=== PATIENT | female | born 1975 | race American Indian/Alaskan Native ===

== ENCOUNTER 2019-04-22 10:07 | Emergency (ER) | payer MEDICARE ==
--- NOTE | 2019-04-22 11:18 | Emergency Department Report ---
Blank Doc - Documentation Documentation: 44-year-old female that presents with URI symptoms and was sent by PCP. This initial assessment/diagnostic orders/clinical plan/treatment(s) is/are subject to change based on patient's health status, clinical progression and re- assessment by fellow clinical providers in the ED. Further treatment and workup at subsequent clinical providers discretion. Patient/guardians urged not to elope from the ED as their condition may be serious if not clinically assessed and managed. Initial orders include: 1- Patient sent to [facility] for further evaluation and treatment 2- CXR
--- NOTE | 2019-04-22 11:43 | XRay Report ---
CHEST 2 VIEWS INDICATION / CLINICAL INFORMATION: cough. COMPARISON: None available. FINDINGS: SUPPORT DEVICES: None. HEART / MEDIASTINUM: No significant abnormality. LUNGS / PLEURA: No significant pulmonary or pleural abnormality. .No pneumothorax. ADDITIONAL FINDINGS: No significant additional findings. IMPRESSION: 1. No acute findings. Signer Name: Marlon Slater MD Signed: 04/22/2019 11:39 AM Workstation Name: [id number]
--- NOTE | 2019-04-22 12:24 | Emergency Department Report ---
- General Chief Complaint: Upper Respiratory Infection Stated Complaint: CHEST PAIN/BACK/BODYPAIN Time Seen by Provider: 04/22/19 11:16 Source: patient Mode of arrival: Ambulatory Limitations: No Limitations - History of Present Illness Initial Comments: 44-year-old -[place] female presents to the emergency room complaining of body aches chills fever cough and chest congestion. Patient has a history of rheumatoid arthritis and on methotrexate. Patient reports that she did contact her primary care doctor and they referred her to the emergency room. Patient reports that her MAXIMUM TEMPERATURE is 102 last night. Patient reports she has been taking [id number] Tylenol, Benadryl, TheraFlu and ibuprofen without much relief. MD Complaint: fever, cough, sore throat, rhinorrhea, nasal congestion Onset/Timin Severity scale (0 -10): 4 Quality: aching Consistency: constant Improves With: nothing Worsens With: nothing Context: recent chemotherapy Associated Symptoms: fever, chills, myalgias, headache, nasal congestion, sore throat, cough, chest pain Treatments Prior to Arrival: Acetaminophen - Related Data Allergies Allergy/AdvReac Type Severity Reaction Status Date / Time No Known Allergies Allergy Unverified 04/22/19 11:16 ED Review of Systems ROS: Stated complaint: CHEST PAIN/BACK/BODYPAIN Other details as noted in HPI Comment: All other systems reviewed and negative ED Past Medical Hx - Past Medical History Previous Medical History?: Yes Hx Arthritis: Yes (RA on Methotrexate) - Surgical History Past Surgical History?: Yes Additional Surgical History: Hysterectomy. Breast reduction - Social History Smoking Status: Never Smoker Substance Use Type: None ED Physical Exam - General Limitations: No Limitations General appearance: alert, in no apparent distress - Head Head exam: Present: atraumatic, normocephalic - Eye Eye exam: Present: normal appearance - ENT ENT exam: Present: mucous membranes moist - Neck Neck exam: Present: normal inspection - Respiratory Respiratory exam: Present: normal lung sounds bilaterally. Absent: respiratory distress - Cardiovascular Cardiovascular Exam: Present: regular rate, normal rhythm. Absent: systolic murmur, diastolic murmur, rubs, gallop - GI/Abdominal GI/Abdominal exam: Present: soft, normal bowel sounds - Extremities Exam Extremities exam: Present: normal inspection - Back Exam Back exam: Present: normal inspection - Neurological Exam Neurological exam: Present: alert, oriented X3 - Psychiatric Psychiatric exam: Present: normal affect, normal mood - Skin Skin exam: Present: warm, dry, intact, normal color. Absent: rash ED Course Vital Signs 04/22/19 11:15 Temperature 98.3 F Pulse Rate 99 H Respiratory 18 Rate Blood Pressure 144/95 O2 Sat by Pulse 100 Oximetry ED Medical Decision Making - Radiology Data Radiology results: report reviewed Patient: ALICE MARTÍNEZ MR#: [id number] : 1975 Acct:[id number] Age/Sex: 44 / F ADM Date: 04/22/19 Loc: ED Attending Dr: Ordering Physician: JUSTIN MENENDEZ NP Date of Service: 04/22/19 Procedure(s): XR chest routine 2V Accession Number(s): [id number] cc: JUSTIN MENENDEZ NP Fluoro Time In Minutes: CHEST 2 VIEWS INDICATION / CLINICAL INFORMATION: cough. COMPARISON: None available. FINDINGS: SUPPORT DEVICES: None. HEART / MEDIASTINUM: No significant abnormality. LUNGS / PLEURA: No significant pulmonary or pleural abnormality. .No pneumothorax. ADDITIONAL FINDINGS: No significant additional findings. IMPRESSION: 1. No acute findings. Signer Name: Marlon Slater MD Signed: 04/22/2019 11:39 AM Workstation Name: [id number] Transcribed By: SS Dictated By: Marlon Slater MD Electronically Authenticated By: Marlon Slater MD Signed Date/Time: 04/22/19 1139 DD/ 1138 TD/TT: - Medical Decision Making 44-year-old -[place] female presents to the emergency room complaining of body aches chills fever cough and chest congestion. Patient has a history of rheumatoid arthritis and on methotrexate. Patient reports that she did contact her primary care doctor and they referred her to the emergency room. Patient reports that her MAXIMUM TEMPERATURE is 102 last night. Patient reports she has been taking [id number] Tylenol, Benadryl, TheraFlu and ibuprofen without much relief. Critical care attestation.: If time is entered above; I have spent that time in minutes in the direct care of this critically ill patient, excluding procedure time. ED Disposition Clinical Impression: Viral syndrome Disposition: DC-01 TO HOME OR SELFCARE Is pt being admited?: No Does the pt Need Aspirin: No Condition: Stable Instructions: Viral Syndrome (ED) Additional Instructions: Chest x-ray is negative for any acute abnormalities, negative flu. Please follow up with her primary care provider. Continue with [id number] medication for your symptoms. Increase her fluid intake. Tylenol or ibuprofen. Robitussin for cough Referrals: PRIMARY CARE, [Primary Care Provider] - 3-5 Days Forms: Work/School Release Form(ED), Accompanied Note
[2019-04-22 14:09] VITALS: BP 131/79
== END 2019-04-22 14:06 | disposition home or self-care (01) ==
LOC: ED 10:07
DX: B34.9 Viral infection, unspecified (principal); M19.90 Unspecified osteoarthritis, unspecified site; Z90.710 Acquired absence of both cervix and uterus; Z98.890 Other specified postprocedural states
CPT/HCPCS: 71046; 87400